=== PATIENT | male | born 1960 | race Asian ===

== ENCOUNTER 2021-09-24 00:58 | Emergency (ER) | payer OTHER ==
[~2021-09-24] VITALS: Ht 160 cm; Wt 84.1 kg
[2021-09-24 01:04] VITALS: TEMP 98.9
[2021-09-24] MEDS ORDERED: AMOXICILLIN 50500 MG PO ×3 (02:09→02:27)
[2021-09-24 02:29] VITALS: BP 129/84; PULSE 67
== END 2021-09-24 02:29 | disposition home or self-care (01) ==
LOC: COL.ER 00:58
DX: K13.0 Diseases of lips (principal); T40.2X5A Adverse effect of other opioids, initial encounter
CPT/HCPCS: J1100

== ENCOUNTER 2021-11-27 12:12 | Emergency (ER) | payer OTHER ==
[~2021-11-27] VITALS: Ht 160 cm; Wt 88.6 kg
[~2021-11-27 12:12] MED LIST: AMOXICILLIN 50500 MG PO
[2021-11-27 12:17] VITALS: TEMP 98.2
[2021-11-27 12:57] LABS: BASO % 0.6 % (0.0-2.0); EOS # 0.3 K/mm3 (0.0-0.7); EOS % 4.1 % (0.0-4.0); GRAN # 4.3 K/mm3 (1.4-6.5); GRAN % 67.2 % (42.2-75.2); HEMATOCRIT 38.8 % (42.0-52.0); HEMOGLOBIN 12.7 g/dl (13.5-18.0); LYMPH # 1.2 K/mm3 (1.2-3.4); LYMPH % 19.5 % (20.0-51.0); MEAN CELL VOLUME 63 fl (80.0-100.0); MEAN CORPUSCULAR HEMOGLOBIN 21 pg (27-31); MEAN CORPUSCULAR HGB CONC 33 g/dl (33.0-37.0); MONO # 0.5 K/mm3 (0.1-0.6); MONO % 8.3 % (1.7-9.3); PLATELET COUNT 179 K/mm3 (130-400); RED BLOOD COUNT 6.19 M/mm3 (4.20-5.60); REDCELL DISTRIBUTION WIDTH-CV 18.3 % (11.5-14.5)
[2021-11-27 13:13] LABS: ALBUMIN 4.4 gm/dL (3.5-5.0); BILIRUBIN,TOTAL 1.5 mg/dL (0.2-1.2); CALCIUM 9.4 mg/dL (8.4-10.2); CREATININE, serum 1.1 mg/dL (0.72-1.25); POTASSIUM 3.5 mmol/L (3.5-4.5); TOTAL PROTEIN 7.4 gm/dL (6.2-8.1)
[2021-11-27 13:20] LABS: TROPONIN-I 0.017 ng/mL (0.00-0.033)
[2021-11-27 14:17] LABS: COLLECTION METHOD CLEAN CATCH
[2021-11-27 14:54] LABS: URINE APPEARANCE Clear (CLEAR/HAZY); URINE BLOOD TRACE-LYSED (NEGATIVE); URINE COLOR Yellow (YELLOW); URINE GLUCOSE Negative (NEGATIVE); URINE KETONE Negative (NEGATIVE); URINE NITRATE Negative (NEGATIVE); URINE PROTEIN(semi-quant) 1+ (NEGATIVE); URINE UROBILINOGEN 0.2 E.U/dL (0.2-1.0)
[2021-11-27 14:58] LABS: SQUAMOUS EPITHELIAL None Seen /hpf (0-10); URINE BACTERIA None Seen /hpf (NONE SEEN); URINE RBC None Seen /hpf (0-2)
[2021-11-27 15:21] VITALS: BP 138/98; PULSE 93
== END 2021-11-27 15:24 | disposition home or self-care (01) ==
LOC: COL.ER 12:12
PROVIDERS: Physician Assistant
DX: I24.9 Acute ischemic heart disease, unspecified (principal); Z20.822 Contact with and (suspected) exposure to COVID-19